=== PATIENT | female | born 1975 | race African-American/Black ===

== ENCOUNTER 2016-11-19 21:25 | Emergency (ER) | payer BC ==
[2017-02-02] MEDS ORDERED: PRILO PO (11:50)
[2017-02-02] MEDS ORDERED: MOBIC15 MG PO (11:52)
[2017-02-02] MEDS ORDERED: SINGULAIR1 PO (11:53)
[2017-02-02] MEDS ORDERED: PROAIR HFA INH (11:53)
[2017-02-02] MEDS ORDERED: BEN25 PO (11:54)
== END 2016-11-19 22:22 | disposition home or self-care (01) ==
LOC: ER 21:25
DX: J40 Bronchitis, not specified as acute or chronic (principal); J31.0 Chronic rhinitis; I10 Essential (primary) hypertension; K21.9 Gastro-esophageal reflux disease without esophagitis
CPT/HCPCS: 71020; 99283